=== PATIENT | male | born 2000 | race African-American/Black ===

== ENCOUNTER 2021-09-06 00:39 | Emergency (ER) | payer BC ==
[2021-09-06] MEDS ORDERED: Ibuprofen 200 MG TAB ONE (00:59)
[2021-09-06] MEDS ORDERED: Ventolin HFA Inhaler 60 PUFF INHALER ONE (01:00)
== END 2021-09-06 01:01 ==
LOC: CSHERS 00:39
DX: M54.50 Low back pain, unspecified (principal); R06.00 Dyspnea, unspecified; J45.909 Unspecified asthma, uncomplicated
CPT/HCPCS: 99284